=== PATIENT | male | born 1990 | race Two or more races ===

== ENCOUNTER 2017-03-24 20:03 | Emergency (ER) | payer SELFPAY ==
[~2017-03-24] VITALS: Ht 165.1 cm; Wt 65.8 kg
[2017-03-24 21:44] VITALS: BP 144/98
--- NOTE | 2017-03-24 22:25 | Emergency Room Report ---
History of Present Illness General Chief Complaint: Alcohol Intoxication Source: Patient, EMS Present Illness HPI The patient is a 26-year-old male brought in by ambulance in custody presenting for alcohol and drug intoxication. The patient was found laying down in a parking lot next to his car with his child in the back seat. The policemen state that the child was picked up by the child's mother. The patient admits to drinking whiskey and smoking marijuana today. He denies any other drug use. He states that he has been feeling depressed which is why he drank excessively. He denies any symptoms including pain, nausea, vomiting, chest pain, shortness of breath Allergies: Coded Allergies: No Known Allergies (Unverified , 03/24/17) Patient History Past Medical History: see triage record Pertinent Family History: none Reviewed Nursing Documentation: PMH: Agreed, PSxH: Agreed Nursing Documentation-PMH Past Medical History: No Stated History Review of Systems All Other Systems: negative except mentioned in HPI Physical Exam Vital Signs Date Time Temp Pulse Resp B/P (MAP) Pulse Ox O2 Delivery O2 Flow Rate FiO2 03/24/17 19:55 90 16 144/98 100 Room Air Sp02 EP Interpretation: reviewed, normal General Appearance: no apparent distress, GCS 15, non-toxic, lethargic Head: normocephalic, atraumatic Eyes: bilateral eye PERRL, bilateral eye EOMI, bilateral eye Scleral Injection ENT: hearing grossly normal, normal pharynx, no angioedema, normal voice Neck: full range of motion, supple/symm/no masses Respiratory: chest non-tender, lungs clear, normal breath sounds, speaking full sentences Cardiovascular #1: regular rate, rhythm, no edema Musculoskeletal: back normal, gait/station normal, normal range of motion, non- tender Neurologic: alert, responsive, sensory intact, other - A&Ox1 Psychiatric: no suicidal/homicidal ideation, depressed affect Skin: normal color, no rash, warm/dry, well hydrated Medical Decision Making PA Attestation Dr. Yung is my supervising physician. Patient management was discussed with my supervising physician Diagnostic Impression: Primary Impression: Marijuana use Additional Impression: Acute alcoholic intoxication Qualified Codes: F10.929 - Alcohol use, unspecified with intoxication, unspecified ER Course The patient is a 26-year-old male brought in by ambulance in custody presenting for alcohol and drug intoxication. DDx considered but not limited to: drug use, alcohol intoxication, psychosis, among others PE: Vitals stable. NAD A&Ox1. Unsure of where he is or what day it is. Head is NC/AT PERRL. Bilat injection with nystagmus RRR Lungs CTA bilat abd soft and non tender The patient is given time to rest in the ED. He is becoming more alert and oriented with time. His mother has been contacted and will be picking the patient up. The police officers stated the child who was with the patient is with his mother in a safe location. The patient was given ER precautions and told about the dangers of alcohol and drug use. Last Vital Signs Date Time Temp Pulse Resp B/P (MAP) Pulse Ox O2 Delivery O2 Flow Rate FiO2 03/24/17 21:44 16 144/98 100 Room Air 03/24/17 19:55 90 Status: improved Disposition: HOME, SELF-CARE Condition: Improved Referrals: NOT CHOSEN IPA/MD,REFERRING (PCP) Patient Instructions: Alcohol Use Disorder Additional Instructions: My findings were discussed with the patient. Patient was counseled to seek help for alcohol and drug abuse. Patient is stable for discharge, is alert and oriented, and can ambulate without difficulty. Patient is asked to return to ED if he experiences chest pain, abdominal pain, dizziness, falls down, or for any reason. JOSE MARTIN BURROUGHS Mar 24, 2017 22:25
== END 2017-03-24 21:35 | disposition home or self-care (01) ==
LOC: EDBD 20:03 → EMR 20:29
DX: F10.129 Alcohol abuse with intoxication, unspecified (principal); F12.90 Cannabis use, unspecified, uncomplicated
CPT/HCPCS: 99283